=== PATIENT | male | born 1955 | race Caucasian/White ===

== ENCOUNTER 2019-06-11 08:01 | Day surgery (SDC) | payer SELFPAY ==
[~2019-06-11] VITALS: Ht 170.2 cm; Wt 63.9 kg
--- NOTE | 2019-06-11 08:23 | NUR ---
Patient does not know his home medications. He moved here from [place] on 05/14/19 and has not filled prescriptions locally or established a PCP. He states he takes a "water pill" and a "big pill". Asked if he thought the "big pill" was potassium, and he states he thinks that is correct.
[2019-06-11] MEDS ORDERED: WATER PILL PO (08:52)
[2019-06-11 08:53] VITALS: BP 130/73; PULSE 73; TEMP 97.6
[2019-06-11 10:15] VITALS: BP 135/82; PULSE 66; TEMP 96.8
--- NOTE | 2019-06-11 10:15 | NUR ---
Pt to [facility] via cart. Pt awake and alert. Pt ambulates to recliner with stand by assist x2. Warm blankets provided. VSS. Coffee and muffin provided. No visitors here with pt at this time. Son is in parking lot "sleeping" per pt. into consult with pt shortly after arrival. Will continue to monitor. Call light within reach.
[2019-06-11 10:28] VITALS: TEMP 96.8
[2019-06-11 10:30] VITALS: BP 118/77; PULSE 64
--- NOTE | 2019-06-11 10:30 | NUR ---
Pt tolerating food and fluids without difficulties. Pt denies needs. Call light within reach.
[2019-06-11 10:45] VITALS: BP 113/66; PULSE 60
--- NOTE | 2019-06-11 10:45 | NUR ---
Discharge instructions reviewed. Pt voices understanding. IV site discontinued with all parts intact. Pt up to dress. Call light within reach.
--- NOTE | 2019-06-11 10:57 | NUR ---
Pt escorted to private car via wheel chair. Pt accompanied home by his son.
== END 2019-06-11 10:57 | disposition home or self-care (01) ==
LOC: SDCO 08:01
DX: K74.60 Unspecified cirrhosis of liver (principal); Q39.8 Other congenital malformations of esophagus; K29.71 Gastritis, unspecified, with bleeding; K31.89 Other diseases of stomach and duodenum; K29.80 Duodenitis without bleeding; F17.210 Nicotine dependence, cigarettes, uncomplicated; Z88.0 Allergy status to penicillin
CPT/HCPCS: J2704; J3010; J7030